=== PATIENT | male | born 1990 | race Two or more races ===

== ENCOUNTER 2024-06-02 11:39 | Emergency (ER) | payer MEDICAID, SELFPAY ==
[2024-06-02 11:53] VITALS: BP 159/95; PULSE 68; RESP 16; TEMP 36.4; O2SAT 100; BMI 25.6
--- NOTE | 2024-06-02 11:57 | EKG_ITS ---
[facility] Test Date: 2024-06-02 Pat Name: DANTE GARDUNO Department: Room: - Gender: Male [employer]: : 1990 Requested By: Norbert Lagunas (FIDE) Order Number: [id number] Reading MD: Norbert Lagunas (ASSESSMENT TECHNICIAN) Measurements Intervals [place] Rate: 76 P: 47 [place]: 158 QRS: 35 QRSD: 100 T: 17 QT: 397 QTc: 447 Interpretive Statements SINUS RHYTHM No previous ECG available for comparison /store/S0/[id number]/ecg/[id number].pdf
--- NOTE | 2024-06-02 11:57 | XR_ITS ---
Examination: PA lateral chest 2 views Technique: Upright PA lateral chest 2 views Exam date and time: June 02, 2024 1214 hrs. Indications: Dizziness shortness of breath beginning 3 days ago. Findings: Normal heart size Lungs are clear. The osseous structures are intact Impression: No active disease
--- NOTE | 2024-06-02 11:57 | PD.EDRME ---
Rapid Medical Screening Exam RME Arrival date/time: 06/02/24 11:39 33-year-old male presents to the emergency department complains of dizziness Chief Complaint: Dizziness Vital signs: Vital Signs Temperature 97.6 F 06/02/24 11:53 Pulse Rate 68 06/02/24 11:53 Respiratory Rate 16 06/02/24 11:53 Blood Pressure 159/95 H 06/02/24 11:53 Pulse Oximetry (%) 100 06/02/24 11:53 Oxygen Delivery Method Room Air 06/02/24 11:53
[2024-06-02 12:33] LABS: Basophils % (Auto) 0 % (0-2.5); Eosinophils % (Auto) 1 % (0-10); Hematocrit 45.1 % (41.0-53.0); Hemoglobin 15.1 g/dL (13.5-16.0); Immature Granulocytes % (Auto) 0 % (0-0); Immature Granulocytes Auto 0.03 Thou/mm3 (0.00-0.00); Lymphocytes # (Auto) 0.8 Thou/mm3 (1.0-4.8); Lymphocytes % (Auto) 9 % (10-50); Mean Corpuscular HGB Conc 33.5 g/dl (31.0-37.0); Mean Corpuscular Hemoglobin 29.1 pg (25.0-35.0); Mean Corpuscular Volume 87 fL (80-100); Monocytes # (Auto) 0.6 Thou/mm3 (0.0-0.8); Monocytes % (Auto) 7 % (0-12); Neutrophils % (Auto) 83 % (37-80); Nucleated Red Blood Cell % 0 /100 WBC (0); Platelet Count 224 Thou/mm3 (140-440); RDW Standard Deviation 39.5 fL (35.1-43.9); Red Blood Count 5.19 Miln/mm3 (4.50-5.90); White Blood Count 8.5 Thou/mm3 (3.8-10.6)
[2024-06-02 12:56] LABS: Alanine Aminotransferase 39 U/L (10-49); Albumin, Serum 4.8 gm/dL (3.5-5.0); Albumin/Globulin Ratio 1.7 (1.2-2.2); Alkaline Phosphatase 82 U/L (46-116); Anion Gap 9 (7-16); Aspartate Amino Transferase 38 U/L (0-34); BUN/Creatinine Ratio 11 Ratio (12-20); Bilirubin,Total 0.6 mg/dL (0.3-1.2); Blood Urea Nitrogen 12 mg/dL (9-23); Carbon Dioxide 25.1 mMol/L (20.0-31.0); Chloride 105 mMol/L (98-107); Creatinine (Component) 1.1 mg/dL (0.6-1.3); Estimated Creatinine Clearance 106.9 mL/min (>60); Globulin 2.9 gm/dL (2.3-3.5); Glucose 105 mg/dL (74-106); Osmolality,Calculated 277 (275-295); Potassium 3.7 mMol/L (3.4-5.1); Sodium 139 mMol/L (136-145); Total Protein 7.7 gm/dL (5.7-8.2); Troponin I < 0.002 ng/mL (0.0-0.045); eGFR > 60 See Note
[2024-06-02 13:26] LABS: Collection Type, Urine Clean Catch; Squamous Epithelial Cell,Urine 0 /hpf (0-5)
[2024-06-02 13:43] LABS: Amphetamine/Methamp Scrn,U Negative (Negative); Barbiturate Screen,Urine Negative (Negative); Benzodiazepines Screen,Urine Negative (Negative); Benzoylecgonine Screen, Ur Negative (Negative); Fentanyl Screen,Urine Negative (Negative); Opiate Screen,Urine Negative (Negative); THC Screen,Urine Negative (Negative)
[2024-06-02 13:46] LABS: Bilirubin,Urine Negative (Negative); Blood,Urine Negative (Negative); Clarity,Urine Clear (Clear/Hazy); Color,Urine Yellow (Lt Yel-Yel); Glucose, Urine Negative (Negative); Ketones,Urine Negative (Negative); Leukocyte Esterase,Urine Negative (Negative); Nitrite,Urine Negative (Negative); PH,Urine 5.5 (5.0-7.0); Protein,Urine 1+ (Neg - Trace); RBC,Urine 2 /hpf (0-3); Specific Gravity,Urine 1.035 (1.001-1.035); Urobilinogen,Urine Negative mg/dL (0.0-1.0); WBC,Urine < 1 /hpf (0-5)
--- NOTE | 2024-06-02 16:16 | PD.EDDIZZY ---
ED Dizzyness RME/HPI General Chief Complaint: Dizziness Stated Complaint: DIZZINESS, SANDERS, N/V Arrival date/time: 06/02/24 11:39 RME / HPI RME / HPI Narrative: 06/02/24 11:39 33-year-old male presents to the emergency department complains of dizziness DR. GARDNER MAIN ED EVALUATION: 33 year old male with no stated chronic medical history presents to the ED for evaluation of dizziness beginning 2 days ago and worsening today while at work. Describes dizziness as a swaying sensation and while a work today felt very faint and near syncope. Accompanied by vision darkening, seeing stars , nausea, and vomiting. Denies any history of similar dizziness. Patient mentioned he drank a 12-pack of beers on both Friday and Friday and does not feel he is drinking enough water. Denies fevers, chills, sweats, chest pain, cough, abdominal pain, diarrhea, constipation, or urinary symptoms. Related Data Allergies Allergy/AdvReac Type Severity Reaction Status Date / Time No Known Allergies Allergy Verified 06/02/24 11:42 Review of Systems Review of Systems Narrative Review of Systems: Constitutional: DENIES; Fevers Eyes: SEE HPI +vision darkening and seeing stars . DENIES; Loss of vision Head/Ear/Nose: DENIES; Loss of hearing Throat: DENIES; Dysphagia Cardiovascular: SEE HPI +felt faint, near syncope. DENIES; Chest pain, dyspnea Respiratory: DENIES; Shortness of breath Gastrointestinal: SEE HPI +nausea, vomiting. DENIES; Rectal bleeding or melena. Genitourinary: DENIES; Dysuria (painful or difficult urination) Musculoskeletal: DENIES; Arthralgia (pain in a joint),; Skin: DENIES; Rash Neurological: SEE HPI +dizziness, swaying sensation. DENIES; Loss of function or movement Psychiatric: DENIES; recent major life stressor, emotional problem, illicit drug use or abuse Endocrinology: DENIES; Weight change Hematologic/Lymphatic: DENIES; Abnormal bruising Allergic/Immunologic: DENIES; Urticaria (hives) Past Medical History Social History SMOKING STATUS: Never smoker ED Exam Narrative Physical exam: Physical Exam: General: The vital signs were reviewed. The patient is non-toxic, in no apparent distress and appears healthy with a patent airway, no respiratory distress and has no apparent circulatory problems. Head & Scalp: Normocephalic, atraumatic. Face: Appears normal and is without lesions, deformity. Ears: Left external pinna appears normal. Right external pinna appears normal. Eyes: The sclera is anicteric. No obvious photophobia. The Left and Right Orbit/Lid/Conjunctiva appears normal without swelling, discoloration or injection. Nose: The nose is without deformity, discharge or tenderness; Throat: Appears normal. The mucous membranes are pink and moist without exudates, redness or mass seen. The tongue appears normal. Neck: The neck is supple and no apparent mass or adenopathy. Chest: The chest wall is normal in size and symmetry and has no chest wall tenderness or crepitus. The patient displays normal ventilator effort without retractions, accessory muscle use and has adequate air movement bilaterally with no wheezes and no rales. Cardiovascular: Regular rate and rhythm; No murmurs, rubs, or gallops; Gastrointestinal: The abdomen appears normal. No obvious hernias or mass. The abdomen is soft and benign, non-distended, with no pain, no guarding and no rebound tenderness. Bowel sounds are present and normal sounding. No CVA tenderness. Genitourinary: Back/Spine: Extremities/Musculoskeletal/lymphatic: The bilateral upper and lower extremities are warm. There is no evidence of arterial insufficiency. There is no evidence of venous insufficiency/edema. The patient spontaneously moves bilateral upper and lower extremities with no pain and no limitation of movement. There is no apparent, injury or trauma. Skin: The skin is warm, dry and intact. No rashes. No petechia. No purpura. No abnormal bruising. The color is appropriate with no cyanosis. Mental status/Psychiatric: Mental status is appropriate for age. The patient has no apparent delusions, visual hallucinations, no apparent audible hallucinations. The patient has no apparent suicidal thoughts/ideation and no apparent homicidal thoughts/ideation. Neurological: The patient is awake, alert, interactive, cordial, cooperative and is oriented to name and situation. The patient follows commands and answers historical question with no impairment. There is no visual disturbance apparent. The pupils are equal and reactive bilaterally with normal eye movements and no diplopia The bilateral upper and lower extremities have normal strength, normal range of motion and normal functioning. The gait, station and balance appear to be baseline with no acute change Course Quality Measures none Orders Category Date Time Status Bedside Influenza A&B Antigen Test NOW Care 06/02/24 11:57 Completed EKG (ED ONLY) *Do not use* NOW Care 06/02/24 11:57 Completed Insert IV NOW Care 06/02/24 16:56 Active EKG (ED Only) Stat Exams 06/02/24 11:57 Draft XR chest 2V Stat Exams 06/02/24 11:57 Completed CBC Stat Lab 06/02/24 12:07 Completed Comprehensive Metabolic Panel Stat Lab 06/02/24 12:07 Completed Drug Screen,Urine Stat Lab 06/02/24 13:00 Completed Troponin I Stat Lab 06/02/24 12:07 Completed Urinalysis Stat Lab 06/02/24 13:13 Completed Ringers Lactated 1000 ml [Lactated Ringers] 1,000 ml Med 06/02/24 16:21 Discontinued IV 999 mls/hr Ringers Lactated 1000 ml [Lactated Ringers] 1,000 ml Med 06/02/24 16:22 Discontinued IV 999 mls/hr Sodium Chloride 0.9% 1000 ml [Ns] 1,000 ml Med 06/02/24 17:08 Discontinued IV 999 mls/hr Sodium Chloride 0.9% 1000 ml [Ns] 1,000 ml Med 06/02/24 17:09 Discontinued IV 999 mls/hr Vital Signs Vital signs: Vital Signs Temperature 97.6 F 06/02/24 11:53 Pulse Rate 68 06/02/24 11:53 Respiratory Rate 16 06/02/24 11:53 Blood Pressure 159/95 H 06/02/24 11:53 Pulse Oximetry (%) 100 06/02/24 11:53 Oxygen Delivery Method Room Air 06/02/24 11:53 Pulse ox is 100% on room air which is adequate. Dizziness MDM Narrative MDM Narrative:: Patient complains of dizziness for the last couple days and admits to drinking 12 pack of beer this weekend and lab studies are fairly unremarkable other than is got a concentrated urine. Will give a liter of fluid give some oral fluid rehydration also and reevaluate and see if this resolves his problem. He does not appear to be incapacitated. He is having no active vertigo with head position is more like a Swaying sensation with head movement. She got no focal deficits and nothing else to suggest a central process. White blood cell count is within normal limits. CHEM panel reveals normal electrolytes normal renal function BUN/creatinine ratio was 11 transaminases are negative troponin is negative urinalysis has specific gravity of 1035 which is concentrated. Patient got 2 L of fluid and feels better although he still has some slight dizziness. Patient ambulates without any difficulty turns without any hesitancy. Was advised to stay well-hydrated return if getting worse. Patient data External records reviewed:: [facility] previous records (Per EMR review, no previous visits for review ) Clinical information provided by:: patient Social determinants that could affect healthcare access:: alcohol use Patient has the following chronic illnesses:: None How is presenting disease/condition affected by chronic disease/condition?: no chronic disease Evaluation data The following diagnostics were reviewed and interpreted by me:: lab results, radiology exam(s) and EKG tracing(s) (Sinus rhythm, rate 76, no STEMI. ) Lab and/or radiology exams considered but not ordered:: None Interpretation Summary: Ordering Physician: Norbert Lagunas NP, NP Date of Service: 06/02/24 Procedure(s): XR chest 2V Accession Number(s): [id number] cc: Janneth RUIZ),Norbert ELIZALDE; Bebo Law MD~ Examination: PA lateral chest 2 views Technique: Upright PA lateral chest 2 views Exam date and time: June 02, 2024 1214 hrs. Indications: Dizziness shortness of breath beginning 3 days ago. Findings: Normal heart size Lungs are clear. The osseous structures are intact Impression: No active disease Dictated By: Bebo Law MD Signed By: <Electronically signed by Bebo Law MD in OV> 06/02/24 1350 Medications / Prescriptions Medications or Prescriptions considered but not ordered:: None Medication administrations:: Medication Administration History Discontinued Medications Lactated Ringer's (Lactated Ringers) 1,000 mls @ 999 mls/hr IV .Q1H1M ONE Stop: 06/02/24 17:21 Last Admin: 06/02/24 17:09 Dose: Not Given Documented By: AVM Non-Admin Reason: Cancelled by Provider Lactated Ringer's (Lactated Ringers) 1,000 mls @ 999 mls/hr IV .Q1H1M ONE Stop: 06/02/24 17:22 Last Admin: 06/02/24 17:09 Dose: Not Given Documented By: AVM Non-Admin Reason: Cancelled by Provider Sodium Chloride (Ns) 1,000 mls @ 999 mls/hr IV .Q1H1M ONE Stop: 06/02/24 18:08 Last Infusion: 06/02/24 18:08 Dose: Infused Documented By: Admin: 06/02/24 17:10 Dose: 999 mls/hr Documented By: AVM Sodium Chloride (Ns) 1,000 mls @ 999 mls/hr IV .Q1H1M ONE Stop: 06/02/24 18:09 Last Infusion: 06/02/24 18:08 Dose: Infused Documented By: Admin: 06/02/24 17:09 Dose: 999 mls/hr Documented By: AVM See above Consultations Consultation(s) initiated? (list below): No Diagnosis Dizziness Differential Diagnosis: adverse reaction to drug, benign paroxysmal positional vertigo, orthostatic hypotension and other (Dehydration) Most likely diagnosis given after review of the tests above:: Dizziness Weakness Alcohol abuse Admission Indicated Admission indicated?: not indicated Admission Request Was there a request for admission?: No Disposition Plan Disposition Plan: Discharge Discharge Attestation Discharge Attestation: The patient and all family members were given an opportunity to ask questions and understood the discharge instructions. Discharge instructions specifically effects, indications for sooner follow up or return to the emergency department, and the expected course of current diagnosis. Patient condition: Stable Discharge Plan Plan Patient Disposition: HOME (Self Care) Prescriptions/Referrals Referrals: Alessio Siegel MD [Primary Care Provider] - In 1 week Problem List Clinical Impression: Dizziness, Weakness, Alcohol abuse Patient/Caregiver Discharge Instructions Education Materials: ED Dizziness, Uncertain Cause Additional Instructions: Cause of your dizziness is uncertain. Please drink plenty of fluids with a little salt and little sugar. Avoid all alcohol. Return if you are getting worse. Avoid driving a car or operate any vehicles until your dizziness has resolved. Print Language: Icelandic
[2024-06-02 17:03] VITALS: BP 145/86; PULSE 55; RESP 18; TEMP 37; O2SAT 98
[2024-06-02] MEDS: SODIUM CHLORIDE 0.9% 1000 ML 1,000 ML 999 ML IV ×2 (17:09→17:10)
== END 2024-06-02 18:43 | disposition home or self-care (01) ==
PROVIDERS: Nurse Practitioner Primary Care; Emergency Provider Emergency Medicine; PCP Family Medicine
DX: R42 Dizziness and giddiness (principal); R53.1 Weakness; F10.10 Alcohol abuse, uncomplicated
CPT/HCPCS: 36415; 71046; 80053; 80307; 81001; 84484; 85025; 87400; 93005; 96360; 99284; J7030